=== PATIENT | female | born 1995 ===

== ENCOUNTER 2024-10-08 13:36 | Emergency (ER) | payer BC, SELFPAY ==
[2024-10-08 13:50] VITALS: BP 147/86
[2024-10-08 14:11] LABS: % Basophils 0.5 % (0-2); % Eosinophils 1.2 % (0-6); % Immature Granulocytes 0.3 % (0-0.5); % Lymphocytes 21.7 % (20.5-51.1); % Monocytes 4.1 % (1.7-9.3); % Neutrophils 72.2 % (42.2-75.2); Absolute Basophils 0.1 10^3/uL (0-0.2); Absolute Eosinophils 0.1 10^3/uL (0-0.7); Absolute Monocytes 0.4 10^3/uL (0.1-0.6); Absolute Neutrophils 6.7 10^3/uL (1.4-6.5); Hematocrit 39.5 % (37.0-47.0); Hemoglobin 13.7 g/dL (12.0-16.0); Mean Corp Hgb Conc. 34.7 g/dL (33.0-37.0); Mean Corpuscular Hgb 29.5 pg (27.0-31.0); Mean Corpuscular Volume 84.9 fL (81.0-99.0); Mean Platelet Volume 9.5 fL (7.4-10.4); Nucleated Red Blood Cells % 0 %; Platelet Count 320 10^3/uL (130-400); Red Blood Cell Count 4.65 10^6/uL (4.20-5.40); Red Cell Dist. Width 11.5 % (11.5-14.5); White Blood Cell Count 9.3 10^3/uL (4.8-10.8)
[2024-10-08 14:24] LABS: ALT (SGPT) 13 U/L (0-35); AST (SGOT) 17 U/L (14-36); Albumin 4.9 g/dl (3.5-5.0); Alkaline Phosphatase 54 U/L (38-126); Blood Urea Nitrogen 13 mg/dl (7-17); Calcium 9.2 mg/dl (8.4-10.2); Carbon Dioxide 23 mmol/L (22-30); Chloride 104 mmol/L (98-107); Glucose 86 mg/dl (70-99); Magnesium 1.9 mg/dl (1.6-2.3); Potassium 3.7 mmol/L (3.5-5.1); Sodium 139 mmol/L (135-145); Total Bilirubin 0.5 mg/dl (0.2-1.3); Total Protein 7.1 g/dl (6.3-8.2); eGFR > 60.00
[2024-10-08 14:31] LABS: Troponin I < 0.012 ng/ml
[2024-10-08 15:00] LABS: TSH Reflex To Free T4 2.92 uIU/ml (0.47-4.68)
[2024-10-08 15:41] VITALS: BP 124/72; BMI 24.0
--- NOTE | 2024-10-08 16:23 | ED.GENMED ---
History of Present Illness
General
Chief Complaint: Cardiac Symptoms
Source: patient
Exam Limitations: none
Time Seen by Provider: 10/08/24 15:58
History of Present Illness
History of Present Illness:
29yoF with no significant past medical history presenting for evaluation of palpitations chest discomfort. Symptoms initially began 6 days ago. She was playing volleyball and felt like her heart started to race. This gradually resolved but she
had some residual chest discomfort. She had another episode of palpitations 3 days ago and again had some residual chest discomfort afterwards. She was feeling better after resting over the weekend. She was at work today and was giving a tour to
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 She is currently feeling much better but continues to have a mild dull chest discomfort. Patient
states her symptoms do seem to be worse when she is stressed. Patient saw her PCP last week for these symptoms and is scheduled to see a facilities technician in 3 days. She denies any dizziness, syncope, shortness of breath, leg swelling, calf pain. She
does not take any prescription medications.
Phy Exam
General Physical Exam
General Presentation: well appearing and no apparent distress
General age: appears stated age
General Skin: warm and dry
General Habitus: normal
General Mental: alert
ENT Exam
ENT Exam: normocephalic
Cardiovascular Exam
Cardiovascular Exam: regular rate/rhythm, no edema, no murmur and normal peripheral pulses (2+ radial pulses bilaterally)
Pulmonary Exam
Pulmonary Exam: lungs clear, no respiratory distress, no rales, no crackles, no rhonchi and no wheezing
Neurological Exam
Neurological Exam: alert
[place] Coma Scale
Eye Opening: Spontaneous
Verbal Response: Oriented
Motor Response: Obeys Commands
GCS Total Score: 15
Skin Exam
Skin Exam: normal color and warm/dry
Psychiatric Exam
Psychiatric Exam: normal mood/affect
Course
Orders/Labs/Results
Orders:
Orders
10/08/24 13:37
ECG [Electrocardiogram (*1)] Urgent
Reason for Study: Chest Pain
EKG- Treatment ONCE
10/08/24 13:56
Complete Blood Count/With Diff Urgent
Comprehensive Metabolic Panel Urgent
Magnesium Urgent
TSH Reflex To Free T4 Urgent
Troponin I Urgent
10/08/24 16:21
CR Chest - 2 Views Urgent
Comment:
Reason For Exam: CP
Abnormal Lab Results
10/08/24
13:56
Absolute Neuts (auto) 6.7 H 10^3/uL
(1.4-6.5)
10/08/24 13:56
10/08/24 13:56
Vital Signs
Initial and Last Documented VS:
Initial Vital Signs
Temp Pulse Resp BP Pulse Ox
98.2 F 80 20 147/86 99
10/08/24 13:50 10/08/24 13:50 10/08/24 13:50 10/08/24 13:50 10/08/24 13:50
Last Documented Vital Signs
Temp Pulse Resp BP Pulse Ox
98.2 F 72 18 124/72 98
10/08/24 13:50 10/08/24 15:41 10/08/24 15:41 10/08/24 15:41 10/08/24 15:41
MDM/Problems Addressed
Differential Diagnosis Includes:
29yoF here with intermittent palpitations since last week. Also having dull chest discomfort and L hand tingling. Currently feeling improved. No palpitations currently. No syncope. VSS. She is well-appearing no acute distress. Exam is reassuring.
Differential diagnosis includes but is not limited to: Arrhythmia, electrolyte abnormality, thyroid dysfunction, doubt ACS given age
EKG obtained which shows normal sinus rhythm with nonspecific ST changes. Troponin within normal limits. Electrolytes and TSH also normal. Chest x-ray negative for acute findings. Symptoms mostly resolved on reassessment. No indication for
hospitalization. She does have an appointment scheduled in 3 days with a facilities technician. ED return precautions reviewed. Patient in agreement with plan and was discharged in stable condition.
*EKG
Interpreted by ED Provider?: Yes
EKG Intrepretation Date: 10/08/24
Heart Rate: 68
Rate: normal
Rhythm: sinus
[place]: normal axis
Interval: normal interval
QRS Pattern: normal QRS
Ischemia: non-specific ST changes
*Critical Care Note
Total Time (30-74mins, 75-104mins- exclusive of procedures): Not Applicable
ED Attending Note
-
Portions of this chart may have been created with voice recognition software.� Occasional wrong word or��sound alike� substitutions may have occurred due to the inherent limitations of voice recognition software.
Discharge Plan
Departure
Patient Disposition: Home (Routine Discharge)
Date of Disposition: 10/08/24
Time of Disposition: 17:35
Patient with high blood pressure during this ER visit?: No
Discharge Problem:
Heart palpitations, Chest pain
Instructions: Chest Pain (DC)
Referrals:
Jori Gallardo MD [Family Provider] -
Activity Restrictions/Additional Instructions:
Please follow-up with your facilities technician in 3 days as previously scheduled. Return to the ER with any new or worsening symptoms.
Interventions
Interventions:
*Risk Screen - Suicide Last Done: 10/08/24 15:41
*General Assessment Last Done: 10/08/24 13:50
*Neglect/Abuse Screening Last Done: 10/08/24 15:41
*ED COVID-19 Vaccine History Last Done: 10/08/24 15:41
*Nursing Disposition Last Done: 10/08/24 17:47
ED- Pulmonary Assessment Last Done: 10/08/24 15:41
ED- Cardiac Assessment Last Done: 10/08/24 15:41
Discharge Date and Time
Discharge Date/Time: 10/08/24 17:47
Print Language: OMANI
== END 2024-10-08 17:47 | disposition home or self-care (01) ==
LOC: EMR 13:36
PROVIDERS: Student in an Organized Health Care Education/Training Program; EMERGENCY PHYSICIAN Emergency Medicine; FAMILY PHYSICIAN Family Medicine
DX: R00.2 Palpitations (principal); R07.89 Other chest pain
CPT/HCPCS: 99285; 71046; 80053; 83735; 84443; 84484; 85025; 93005